=== PATIENT | male | born 1975 | race Caucasian/White ===

== ENCOUNTER 2022-10-15 11:03 | Emergency (ER) | payer SELFPAY ==
[2022-10-15 11:08] VITALS: BP 134/85; PULSE 80; RESP 18; TEMP 37.1; O2SAT 98
--- NOTE | 2022-10-15 11:15 | DI.RAD_ITS ---
Exam(s) XR KNEE LT 3V AP,LAT,DELMI EXAM: XR KNEE LT 3V AP,LAT,DELMI CLINICAL HISTORY: effusion, pain. TECHNIQUE: 2D digital imaging was performed. Three views. COMPARISON: No exams were available for comparison FINDINGS: BONES: No acute fracture is present. No bony destructive lesion is seen. JOINTS: The knee is normally aligned. A joint effusion is seen. SOFT TISSUE: Normal. IMPRESSION: Joint effusion. No bony abnormality. DATA REPOSITORY: RADIATION DOSE DELIVERED:
--- NOTE | 2022-10-15 11:36 | ED.GENADUL_ITS ---
Discharge Plan Disposition Patient Disposition: Home Condition: Improving Discharge Details Chief Complaint: Orthopedic Clinical Impression: Effusion of knee joint, left Primary Care Provider: Unknown,Unknown ED Provider: Jeremy Olguin Discharge Instructions Instructions: Swollen Knee Joint (ED) Additional Instructions: Please return to the emergency department for worsening pain, swelling, redness fevers inability to move the knee or worsening symptoms. Medical Decision Making 46-year-old male presents with 2 weeks of knee pain worsening over the last several days, possible injury while working, ambulatory full range of motion, moderate suprapatellar effusion. Afebrile nontoxic neurovascular exam of limb intact ambulatory. Likely traumatic effusion versus reactive effusion consider bursitis versus meniscal tear lower suspicion for ACL or PCL injury given stability of knee, lower suspicion for collateral ligament injury given stability of knee, low suspicion for infectious process such as septic joint given afebrile nontoxic range of motion intact. Must also consider gout. Bedside ultrasound showing mild to moderate suprapatellar effusion, will obtain x-ray of knee, will provide analgesia anti-inflammatory, will reassess knee with ultrasound in dependent position to evaluate for possible arthrocentesis. Bedside arthrocentesis performed initially upon arrival, sterile field, injected with lidocaine 1%, ultrasound guidance was used to assess area, suprapatellar region was selected, was only able to get a few cc of material off appeared relatively clear, was sent for culture and crystals given limited volume. Contacted Dr. Kwon of orthopedic surgery who came to bedside perform deeper aspiration and injection of cortisone into joint space. Synovial fluid appeared cloudy, initial gram stain negative for bacteria many white blood cells, sent for cell count, crystals came back negative, also sent for glucose LDH and protein. Patient to follow-up closely given home care instructions and return precautions. Ambulatory after procedure. Sign Out No HPI General Date/Time Provider Initiated Documentation: 10/15/22 11:16 . HPI Narrative: 46-year-old male no past medical history presents with left knee pain over the past 2 weeks, felt discomfort 2 weeks ago while working, progressive discomfort over the last week, has noted some swelling. No fevers no chills. General Stated Complaint: Orthopedic DANIA: 3 Review of Systems Narrative: Review of Systems Constitutional: negative Eyes: negative ENT: negative Cardiovascular: negative Respiratory: negative Gastrointestinal: negative : negative Musculoskeletal: Knee pain, swelling Skin: negative Neurologic: negative Psych: negative PFSH All Active Problems (Updated 10/15/22 @ 15:07 by Jeremy Olguin MD) Effusion of knee joint, left (Acute) Social History Smoking/Tobacco Use Status: Never Smoking risk assessment performed?: Yes Alcohol Intake: current Alcohol Intake frequency: a few times a month Drug use: Never Substance use type: does not use Do you feel safe at home: Yes Do you feel safe in your relationship?: Yes Exam Narrative Exam Narrative: Physical Examination General: alert, awake, cooperative, resting comfortably, no acute distress HEENT: normocephalic, atraumatic; PERRL, EOM intact, conjunctiva normal; no nasal discharge; moist mucous membranes, oral and pharyngeal mucosa normal, tolerating secretions Neck: supple, trachea midline; full ROM Chest: normal to inspection Respiratory: normal respiratory effort, speaking in full sentences, clear to auscultation, no wheezing, rales or rhonchi Cardiac: regular rate, regular rhythm, S1S2 intact, no murmurs rubs or gallops GI: abdomen soft, non-tender, non-distended; no palpable mass or hepatosplenomegaly Skin: no lesions, rashes or trauma appreciated Neuro: AAOx3, normal speech, moving all extremities Extremities: Moderate joint effusion left knee, superior aspect of patella, flexion extension intact, no warmth erythema or skin changes, warm well perfused extremity sensate Psych: Appropriate mood and affect Course Vital Signs Vital signs: Vital Signs Temperature 37.1 C 10/15/22 11:08 Pulse 80 10/15/22 11:08 Respiratory Rate 18 10/15/22 11:08 Blood Pressure 134/85 10/15/22 11:08 Pulse Oximetry 98 10/15/22 11:08 Temperature 37.1 C 10/15/22 11:08 Temperature Source Tympanic 10/15/22 11:08 Pulse 80 10/15/22 11:08 Respiratory Rate 18 10/15/22 11:08 Respiratory Effort 10/15/22 11:14 Blood Pressure 134/85 10/15/22 11:08 Blood Pressure Position Supine 10/15/22 11:08 Pulse Oximetry 98 10/15/22 11:08 Oxygen Delivery Method Room Air 10/15/22 11:08 Oxygen Flow Rate 0 10/15/22 11:08 Pain Level 4 10/15/22 11:08 PAWSS Have you Been Recently Intoxicated or Drunk Within the Last 30 days?: No Have you Ever Experienced Previous Episodes of Alcohol Withdrawal?: No Have you ever Experienced Withdrawal Seizures?: No Have you ever Experienced Delirium Tremens(DT)s?: No Have you ever undergone Alcohol Rehabilitation Treatment (i.e, inpt ot outpatient treatment programs)?: No Have you ever Experienced Blackouts?: No Have you ever Combined Alcohol with other Downers within the last 90 days?: No Have you ever Combined Alcohol with any other Substance of Abuse during the last 90 days?: No Positive Blood Alcohol level on Presentation? [PCS.BAL]: No Evidence of Increased Autonomic Activity (i.e. HR>120, tremor, sweating, agitation, nausea)?: No Result: 0
[2022-10-15] MEDS: Dexamethasone 10 MG/ML VIAL IVP (11:49)
[2022-10-15] MEDS: Pantoprazole 40 MG TABCR PO (11:50)
[2022-10-15] MEDS: Ketorolac 15 MG/ML VIAL IVP (11:50)
[2022-10-15 14:09] LABS: Crystals (BF) No Crystals seen
[2022-10-15 15:06] VITALS: BP 125/82; PULSE 82; RESP 19; TEMP 36.7; O2SAT 98
--- NOTE | 2022-10-15 15:16 | W.ORTHOCONSU ---
Date of service: 10/15/22 Time of Service: 15:01 History of Present Illness History of Present Illness Chief Complaint: Left knee swelling and pain Narrative: Adilson is a 46-year-old active male who reports about 2 weeks of left knee swelling and pain. He denies any specific trauma. However, he did report an episode of pulling quite awkwardly and firmly which resulted in an awkward sensation within the knee. He has had some increasing swelling which has gotten worse over the past 2 weeks. He finds his pain is worse when he tries to maximally flex the knee. He has been able to hike and ski although with some discomfort. He has not been using regular anti-inflammatory. However, the swelling has really worsened in the last 2 days. He denies fevers or chills. He denies any ongoing medical issues. He denies IV drug use or any immunocompromisation. Consults Consult date: 10/15/22 Requesting physician: Jeremy Olguin Consult Reason Left knee swelling and pain Assessment and Plan Assessment and plan (1) Effusion of knee joint, left: Status: Acute Assessment and plan: Adilson is a 46-year-old who has an effusion and pain about the left knee. I do not have a good source. He does have turbid fluid within the left knee but his chance of infection is nearly 0. He has no risk factors for it and there is no other findings to suggest infection. Gout would be likely but the crystals are initially negative. CPPD would be another potential option but once again crystal analysis was reported negative. I do worry that these crystals may be over carotid by the amount of white blood cells in the fluid. Nevertheless, we will follow the cell count and the cultures. I did offered an injection which was performed at the same time as the aspiration. He reported improvement in his pain. Recommend regular use of anti-inflammatories and ice if needed. He may resume regular activities as the knees are feeling better. Review of Systems All systems reviewed & are unremarkable except as noted in HPI and below PFSH All Active Problems Effusion of knee joint, left (Acute) Social History Smoking/Tobacco Use Status: Never Smoking risk assessment performed?: Yes Alcohol Intake: current Alcohol Intake frequency: a few times a month Drug use: Never Substance use type: does not use Do you feel safe at home: Yes Do you feel safe in your relationship?: Yes Exam Narrative Exam Narrative: Sitting up in the hospital bed. No acute distress. Alert and x3. Evaluation left knee shows a swollen left knee. No erythema. Mild warmth. There is a notable effusion. He is able to tolerate some passive range of motion from 5 to 85 degrees without significant pain. He is able to actively move the knee although some slight increase in discomfort, special with flexion. Is able to perform a straight leg raise. Pain to palpation about the knee, especially anterolaterally. No defect in the skin. 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 1: Time out performed: Yes Side of body: left Joint aspirated: knee Ultrasound guidance: No Skin prep: Chlorhexidine Local anesthesia used: other (Ethyl Chloride) Needle size used: 18G Fluid obtained: turbid Total fluid obtained (ml): 45 Medication injected, if any: Methylprednisolone (80 mg/ml, Lot#[id number], Exp 04/2024) Amount of medication injected (ml): 1 Patient tolerated procedure: well Complications: none Additional comments: Sent for cell count
[2022-10-15 16:25] LABS: Clarity Cloudy
[2022-10-15 16:26] LABS: Mononuclear Cells 18 %; Nucleated Cells 31410 uL (0); Polynuclear Cells 82 %
[2022-10-19 11:20] LABS: Glucose, BF 99 mg/dL
[2022-10-19 11:22] LABS: Fluid Type SYNOVIAL; Protein,Total, BF 5.1 g/dL
[2022-10-19 11:23] LABS: Fluid Type SYNOVIAL; Lactate Dehydrogenase (LD), BF 374 U/L
== END 2022-10-15 15:13 | disposition home or self-care (01) ==
PROVIDERS: Emergency Provider Emergency Medicine
DX: M25.462 Effusion, left knee (principal)
CPT/HCPCS: 20610; 73562; 82945; 96374; 96375; 99284; 81373; 83615; 84157; 87070; 87205; 87476; 89051; 89060; J1100; J1885; J3490

== ENCOUNTER 2023-02-03 12:42 | Emergency (ER) | payer SELFPAY ==
[2023-02-03 12:47] VITALS: BP 142/49; PULSE 88; RESP 16; TEMP 37; O2SAT 97
--- NOTE | 2023-02-03 13:02 | DI.MRI_ITS ---
Exam(s) MR LOWER JOINT LT WO EXAM: MR LOWER JOINT LT WO CLINICAL HISTORY: left knee effusion acute on chronic. TECHNIQUE: Multiplanar multisequence MRI was performed. COMPARISON: CR XR KNEE LT 3V AP,LAT,DELMI from 10/15/2022 FINDINGS: BONES: Contusion involving the medial femoral condyle. JOINTS: Articular cartilage is unremarkable. No effusion is present. Large joint effusion. TENDONS: Extensor mechanism: Unremarkable. Medial retinaculum: Unremarkable. Lateral retinaculum: Unremarkable. Popliteus: Unremarkable. MUSCLES: There is a mild amount of edema in the popliteus muscle. There is edema seen in the medial gastrocnemius muscle. MENISCI: The medial meniscus is unremarkable. No evidence of a lateral meniscal tear. SOFT TISSUES: There is edema seen in the soft tissues around the knee. There is a popliteal cyst pre sent. LIGAMENTS: Anterior Cruciate: There is edema seen in the anterior cruciate ligament. No complete tear is seen. Posterior Cruciate: Unremarkable. Medial Collateral:There is edema seen around the medial collateral ligament. No tear is seen. Lateral Collateral: Unremarkable. OTHER: IMPRESSION: 1. ACL strain. No evidence of a complete tear. 2. Grade 1 MCL sprain. 3. Large joint effusion. 4. Edema in the soft tissues of the lower extremity, the popliteus and medial gastrocnemius muscle an d popliteal cyst. DATA REPOSITORY:
--- NOTE | 2023-02-03 13:02 | DI.US_ITS ---
Exam(s) US LOWER EXTREMITY VENOUS LT EXAM: US LOWER EXTREMITY VENOUS LT CLINICAL HISTORY: edema left lower extremity TECHNIQUE: Left lower extremity venous ultrasound performed using grayscale, color-flow, and spectra l Doppler analysis. COMPARISON: No exams were available for comparison FINDINGS: The left common femoral, femoral and popliteal veins demonstrate normal compressibility, augmentation , and color Doppler. The posterior tibial veins are patent. The saphenofemoral junction is unremarka ble. There is no evidence of a Carpio cyst. The soft tissues are unremarkable. IMPRESSION: 1. No evidence of a left lower extremity DVT. 2. Findings were discussed with Dr. Olguin on 02/03/2023. DATA REPOSITORY:
[2023-02-03] MEDS: Ketorolac 15 MG/ML VIAL IM (13:10)
--- NOTE | 2023-02-03 13:16 | ED.GENADUL_ITS ---
Discharge Plan Disposition Patient Disposition: Home Discharge Details Chief Complaint: Orthopedic Clinical Impression: Effusion of knee, Acute lateral meniscal tear Primary Care Provider: Unknown,Unknown ED Provider: Jeremy Olguin Home Meds and New Rx's Prescriptions: No Action No Known Home Meds Discharge Instructions Instructions: Swollen Knee Joint (ED) Additional Instructions: Please follow-up closely with Dr. Duarte's team Medical Decision Making 47-year-old male presents with acute on chronic left knee effusion now with left lower extremity swelling afebrile nontoxic ambulatory with limp, range of motion extension intact full flexion limited by tension from effusion and discomfort, mildly warm to the touch without overlying induration or redness, multiple arthrocentesis over the last couple months negative for bacterial etiology. High clinical suspicion for meniscal tear. Lower suspicion for septic joint or hemarthrosis given no recent trauma. Trial of anti-inflammatory analgesia, will obtain MRI knee and left lower extremity to assess for any DVT. Disposition likely home with close Ortho follow-up 18: 44 initial MRI results concerning for ACL and MCL strain however after reviewing images with Dr. Duarte orthopedic surgery he is concerned for lateral meniscal tear which is more consistent with patient's history and physical exam of recurrent effusions Dr. Duarte is going to arrange close follow-up to schedule operative repair. HPI General Date/Time Provider Initiated Documentation: 02/03/23 12:52 . HPI Narrative: 47-year-old male history of recurrent effusion left knee had a potential injury in October has had multiple arthrocentesis with negative culture, presents with worsening effusion and left lower extremity swelling over the past several days to weeks. Has been wrapping and elevating leg has been intermittently taking anti-inflammatory. Has decreased his physical activity without improvement of symptoms Related Data Home Medications Medication Instructions Recorded Confirmed Unknown [No Known Home Meds] 02/03/23 02/03/23 Allergies Allergy/AdvReac Type Severity Reaction Status Date / Time No Known Allergies Allergy Unverified 02/03/23 12:50 General Stated Complaint: Orthopedic DANIA: 4 Review of Systems Narrative: Review of Systems Constitutional: negative Eyes: negative ENT: negative Cardiovascular: negative Respiratory: negative Gastrointestinal: negative : negative Musculoskeletal: Knee pain, knee swelling, leg swelling Skin: negative Neurologic: negative Psych: negative PFSH All Active Problems (Updated 02/03/23 @ 18:46 by Jeremy Olguin MD) Effusion of knee (Acute) Acute lateral meniscal tear (Acute) Social History Smoking/Tobacco Use Status: Never Smoking risk assessment performed?: Yes Alcohol Intake: current Alcohol Intake frequency: a few times a month Drug use: Occasionally Substance use type: marijuana Do you feel safe at home: Yes Do you feel safe in your relationship?: Yes Exam Narrative Exam Narrative: Physical Examination General: alert, awake, cooperative, uncomfortable appearing Skin: no lesions, rashes or trauma appreciated Neuro: AAOx3, normal speech, moving all extremities Extremities: Effusion to left knee, slightly warm knee without overlying redness or induration, patient does have edema from level of foot and ankle to knee, able to walk with limp, full extension intact, flexion limited by effusion, no joint laxity, warm well perfused extremity, sensate lower extremity DP pulse intact Psych: Appropriate mood and affect Course Vital Signs Vital signs: Vital Signs Temperature 37.0 C 02/03/23 12:47 Pulse 88 02/03/23 12:47 Respiratory Rate 16 02/03/23 12:47 Blood Pressure 142/49 H 02/03/23 12:47 Pulse Oximetry 97 02/03/23 12:47 Temperature 37.0 C 02/03/23 12:47 Temperature Source Oral 02/03/23 12:47 Pulse 88 02/03/23 12:47 Respiratory Rate 16 02/03/23 12:47 Respiratory Effort Normal, Non-Labored 02/03/23 12:50 Blood Pressure 142/49 H 02/03/23 12:47 Pulse Oximetry 97 02/03/23 12:47 Pain Level 6 02/03/23 13:10
[2023-02-03 14:19] VITALS: BP 132/81; PULSE 76; TEMP 37; O2SAT 98
--- NOTE | 2023-02-03 16:45 | DI.VRAD_ITS ---
PROCEDURE INFORMATION: Exam: MR Left Lower Extremity Joint Without Contrast, Knee Exam date and time: 02/03/2023 3:52 PM Age: 47 years old Clinical indication: Pain; Knee; Left TECHNIQUE: Imaging protocol: Magnetic resonance imaging of the left lower extremity joint without contrast. Exam focused on the knee. COMPARISON: CR XR KNEE LT 3V AP,LAT,DELMI 10/15/2022 12:08 PM FINDINGS: Bones/joints: Large joint space effusion. Marrow signal of the distal femur, proximal tibia and fibula is normal. No bone contusion patterns. Periarticular cysts: Posterior popliteal cyst. Medial meniscus: Unremarkable. No tear. Lateral meniscus: Unremarkable. No tear. Anterior cruciate ligament: Edematous anterior cruciate ligament. No complete tear. Posterior cruciate ligament: Unremarkable. No tear. Medial capsule and supporting structures: Edema around the medial collateral ligament. No tear. Lateral capsule and supporting structures: Unremarkable. No tear. Extensor mechanism of knee: Unremarkable. No tear. Muscles: Diffuse edema in the medial gastrocnemius muscle. Soft tissues: Unremarkable. IMPRESSION: 1. Large joint space effusion. 2. Strain of the anterior cruciate ligament. No tear. 3. Edema around the medial gastrocnemius muscle. Possible muscle strain. Fluid from ruptured popliteal cyst could result in similar findings. 4. Grade 1 MCL strain. Dictated and Authenticated by: Cm Stein MD. Ordering:CHANCE Luna MD
[2023-02-03 18:32] LABS: ESR 58 mm/hr (0-15)
[2023-02-03 18:33] LABS: Abs Immature Grans 0.03 10^3/uL (0.0-0.06); Absolute Basophil Count 0.01 10^3/uL (0.0-0.2); Absolute Eosinophil Count 0.05 10^3/uL (0.0-0.7); Absolute Lymphocyte Count 1.61 10^3/uL (1.2-3.4); Absolute Monocyte Count 0.63 10^3/uL (0.1-0.8); Absolute Neutrophil Count 5.59 10^3/uL (1.2-6.7); Basophils % 0.1; Eosinophils % 0.6; HCT 40.8 % (40.0-50.0); HGB 13.6 g/dL (13.5-17.5); Immature Grans % 0.4; Lymphocytes % 20.3; MCH 30.4 pg (27.0-33.0); MCHC 33.3 % (32.0-36.0); MCV 91 fL (80-95); MPV 9.9 fL (8.0-11.0); Neutrophils % 70.6; Platelet Count 343 10^3/uL (130-400); RBC 4.48 10^6/uL (4.36-5.78); RDW 12.1 % (11.8-14.1); RDW-SD 40.8 fL; WBC 7.92 10^3/uL (4.4-10.8)
[2023-02-03 18:40] LABS: ALT 21 U/L (16-63); AST 18 U/L (15-37); Albumin 3.6 g/dL (3.4-5.0); Alkaline Phosphatase 77 U/L (46-116); Anion Gap 6.3 mmol/L (3-11); BUN 10 mg/dL (7-18); Bilirubin, Total 0.5 mg/dL (0.2-1.0); C-Reactive Protein 5.19 mg/dL (0.0-0.3); CO2 27.7 mmol/L (21.0-32.0); CREATININE 0.8 mg/dL (0.70-1.30); Calcium 8.9 mg/dL (8.5-10.1); Chloride 104 mmol/L (98-107); Estimated GFR 109.85 (mL/min/1.73m2); Glucose 95 mg/dL (74-106); Potassium 4.1 mmol/L (3.5-5.1); Sodium 138 mmol/L (136-145); Total Protein 7.7 g/dL (6.4-8.2)
[2023-02-07 13:43] LABS: Lyme Ab w Rflx to Lyme Confirm Positive (Negative)
[2023-02-07 14:28] LABS: ANA Interpretation Positive (Negative); ANA Titer Pattern 1:80 Speckled
[2023-02-07 14:46] LABS: Lyme IgG Ab Positive (Negative); Lyme IgM Ab Positive (Negative)
[2023-02-07 15:15] LABS: Anaplasma phagocytophilum Negative (Negative); B. miyamotoi PCR Negative (Negative); Babesia divergens/MO-1 Negative (Negative); Babesia duncani Negative (Negative); Babesia microti Negative (Negative); Ehrlichia chaffeensis Negative (Negative); Ehrlichia ewingii/canis Negative (Negative); Ehrlichia muris eauclairensis Negative (Negative)
== END 2023-02-03 18:44 | disposition home or self-care (01) ==
PROVIDERS: Emergency Provider Emergency Medicine
DX: S81.012A Laceration without foreign body, left knee, initial encounter (principal); X58.XXXA Exposure to other specified factors, initial encounter
CPT/HCPCS: 73721; 80053; 85652; 86617; 87798; 85025; 86038; 86140; 86618; 93971; J1885